=== PATIENT | male | born 1965 | race Caucasian/White ===

== ENCOUNTER 2016-10-25 20:44 | Emergency (ER) | payer SELFPAY ==
[~2016-10-25] VITALS: Ht 180.3 cm; Wt 85.0 kg
[2016-10-25 21:04] VITALS: Ht 180.3 cm; Wt 85.0 kg
[2016-10-25] MEDS ORDERED: ONDANSETRON (ODT) 4 MG TAB ODT STA (21:45)
[2016-10-25] MEDS ORDERED: OPHTHALMIC IRRIG SOLUTION 120 ML RIGHT EYE ONE (22:00)
[2016-10-25] MEDS ORDERED: ONDA-43 PO (22:00)
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
== END 2016-10-25 22:08 | disposition home or self-care (01) ==
LOC: FTE 20:44
DX: S05.91XA Unspecified injury of right eye and orbit, initial encounter (principal); Y08.89XA Assault by other specified means, initial encounter
CPT/HCPCS: 99283